=== PATIENT | female | born 1975 | race Caucasian/White ===

== ENCOUNTER 2016-06-26 16:08 | Emergency (ER) | payer OTHER | END 2016-06-26 21:45 | disposition home or self-care (01) | LOC: ER1 16:08 | DX: S40.012A Contusion of left shoulder, initial encounter (principal); V89.2XXA Person injured in unspecified motor-vehicle accident, traffic, initial encounter; Y93.89 Activity, other specified; Y92.410 Unspecified street and highway as the place of occurrence of the external cause | CPT/HCPCS: 72125; 73030; 73090; 99284 ==

== ENCOUNTER → 2016-06-29 | Outpatient (CLI) | payer OTHER, BC | LOC: EMI 13:34 | DX: M25.512 Pain in left shoulder (principal) | CPT/HCPCS: 73221 ==